=== PATIENT | female | born 1980 | race Caucasian/White ===

== ENCOUNTER 2016-08-19 01:57 | Emergency (ER) | payer OTHER ==
[~2016-08-19] VITALS: Ht 170.2 cm; Wt 74.7 kg
[~2016-08-19 01:57] MED LIST: CHILD ASPIRIN81 M1 PO; ENDOCET 5-3251 EACH PO; HEPARIN SO5000 UNITS SC; IBUPROFEN800 MG PO; PERCOCET 5/31 TABLET PO; PRENATAL TABLE1 EAC3 PO; ZOFRAN ODT4 MG PO
[2016-08-19 02:40] LABS: HEMATOCRIT 41.5 % (36.0-46.0); MCH 29.6 PG (29.0-34.0); MCHC 32.8 G/DL (30.0-36.0); MCV 90.4 FL (83-99); MEAN PLAT.VOLUME 9.5 uM^3 (9.5-12.4); PLATELET COUNT 239 K/uL (156-360); RBC DIS.WIDTH-CV 11.7 % (11.8-14.6); RBC DIS.WIDTH-SD 38.7 % (39-53); RED BLOOD COUNT 4.59 M/uL (3.80-5.20)
[2016-08-19 02:51] LABS: ADD MIUA? YES; BILIRUBIN NEGATIVE; BLOOD MODERATE; COLOR STRAW ((YELLOW)); GLUCOSE (STRIP) NEGATIVE; KETONES NEGATIVE; LEUKOCYTES LARGE; NITRITE NEGATIVE; PROTEIN (STRIP) 30; SPECIFIC GRAVITY 1.005 (1.000-1.030); UROBILINOGEN 0.2 MG/DL (0.2-1.0)
[2016-08-19 02:54] LABS: CHLORIDE 103 mEq/L (99-109); POTASSIUM 3.4 mEq/L (3.7-5.4); SODIUM 138 mEq/L (136-147)
[2016-08-19 02:55] LABS: BACTERIA RARE /HPF; EPITHELIAL CELLS RARE /HPF; MUCUS TRACE /LPF; UCUL ADDED? YES; WHITE BLOOD CELLS TNTC /HPF (0-5)
[2016-08-19 02:56] LABS: GLUCOSE 93 mg/dL (70-99)
[2016-08-19 02:57] LABS: ANION GAP 9 MEQ/L (2-14)
[2016-08-19 03:00] LABS: GFR ESTIMATE (CALCULATED) > 59 mL/min/
[2016-08-19 03:01] LABS: UREA NITROGEN (BUN) 15 mg/dL (9-23)
[2016-08-19 03:08] LABS: QUANTITATIVE HCG < 4.0 MIU/ML
[2016-08-19] MEDS ORDERED: NAPROSYN500 MG PO (04:27)
[2016-08-19] MEDS ORDERED: ZOFRAN4 MG PO (04:27)
[2016-08-19 04:58] VITALS: BP 125/69
== END 2016-08-19 05:02 | disposition home or self-care (01) ==
LOC: EME 01:57
DX: N39.0 Urinary tract infection, site not specified (principal); Z87.891 Personal history of nicotine dependence
CPT/HCPCS: 74176; 80048; 81003; 84702; 85027; 87086; 99281; 99283

== ENCOUNTER 2017-03-18 09:45 | Emergency (ER) | payer OTHER ==
[~2017-03-18] VITALS: Ht 170.2 cm; Wt 77.0 kg
[~2017-03-18 09:45] MED LIST changes: +NAPROSYN500 MG PO; +ZOFRAN4 MG PO
[2017-03-18 13:03] LABS: CHLORIDE 105 mEq/L (99-109); POTASSIUM 4.4 mEq/L (3.7-5.4); SODIUM 138 mEq/L (136-147)
[2017-03-18 13:06] LABS: GLUCOSE 86 mg/dL (70-99)
[2017-03-18 13:09] LABS: CREATININE 0.8 mg/dL (0.6-1.3); GFR ESTIMATE (CALCULATED) > 59 mL/min/; UREA NITROGEN (BUN) 11 mg/dL (9-23)
[2017-03-18 15:38] VITALS: BP 124/77
== END 2017-03-18 15:42 | disposition home or self-care (01) ==
LOC: EME 09:45
PROVIDERS: Emergency Medicine
DX: H53.8 Other visual disturbances (principal); H57.11 Ocular pain, right eye; Z83.511 Family history of glaucoma; Z82.3 Family history of stroke; Z86.718 Personal history of other venous thrombosis and embolism; Z98.890 Other specified postprocedural states
CPT/HCPCS: 70543; 80048; 84703; 99281; 99285; J7030